=== PATIENT | female | born 1995 | race Caucasian/White ===

== ENCOUNTER 2016-09-14 12:30 | Emergency (ER) | payer BC, OTHER ==
[2016-09-14 13:44] LABS: HEMOGLOBIN 15.1 gm/dl (12.3-15.3); RED BLOOD COUNT 4.88 M/UL (4.00-5.10); WHITE BLOOD COUNT 8.3 K/UL (4.5-11.0)
[2016-09-14 14:07] LABS: BUN/CREATININE RATIO 14 (0-10)
== END 2016-09-14 15:00 | disposition home or self-care (01) ==
LOC: ER1 12:30
PROVIDERS: Nurse Practitioner Family
DX: R11.2 Nausea with vomiting, unspecified (principal); R19.7 Diarrhea, unspecified; F17.210 Nicotine dependence, cigarettes, uncomplicated
CPT/HCPCS: 36415; 80053; 80307; 81001; 82150; 83690; 84703; 85025; 87086; 96361; 96374; 96375; 99284; C9113; G0480; J2405; J7030

== ENCOUNTER 2020-11-18 18:27 | Emergency (ER) | payer OTHER ==
[~2020-11-18 18:27] MED LIST: MACROBID 100 M100 MG PO; PRENATAL VITAM1 EAC6 PO; SUBUTEX 8 MG TAB8 MG SL
[2020-11-18] MEDS ORDERED: CLINDAMYCIN HC300 MG PO (22:56)
[2020-11-18] MEDS ORDERED: PREDNISONE 20 M20 MG PO (23:06)
[2020-11-18] MEDS ORDERED: IBU800 MG PO (23:06)
== END 2020-11-18 18:30 | disposition left against medical advice (07) ==
LOC: ER1 18:27
DX: Z53.21 Procedure and treatment not carried out due to patient leaving prior to being seen by health care provider (principal)

== ENCOUNTER 2020-11-18 19:11 | Emergency (ER) | payer OTHER ==
[2020-11-18 20:56] LABS: HEMOGLOBIN 14.9 gm/dl (12.3-15.3); RED BLOOD COUNT 5.03 M/UL (4.00-5.10); WHITE BLOOD COUNT 14.8 K/UL (4.5-11.0)
[2020-11-18 21:01] LABS: BUN/CREATININE RATIO 12 (0-10)
[2020-11-18] MEDS ORDERED: CLINDAMYCIN HC300 MG PO (22:56)
[2020-11-18] MEDS ORDERED: IBU800 MG PO (23:06)
[2020-11-18] MEDS ORDERED: PREDNISONE 20 M20 MG PO (23:06)
== END 2020-11-18 23:27 | disposition home or self-care (01) ==
LOC: ER1 19:11
PROVIDERS: Physician Assistant
DX: J36 Peritonsillar abscess (principal); Z88.0 Allergy status to penicillin; F17.210 Nicotine dependence, cigarettes, uncomplicated; Z20.822 Contact with and (suspected) exposure to COVID-19
CPT/HCPCS: 70491; 80053; 83605; 85025; 85652; 86140; 87040; 87081; 87880; 96374; 96375; 96376; 99284; J1100; J2270; J2405; Q9967; U0002